=== PATIENT | female | born 1995 | race Asian ===

== ENCOUNTER → 2019-03-18 | Outpatient (CLI) | payer OTHER | END | disposition home or self-care (01) | LOC: PRENATAL 11:57 | DX: O26.849 Uterine size-date discrepancy, unspecified trimester (principal) ==

== ENCOUNTER → 2019-03-20 | Outpatient (CLI) | payer OTHER | END | disposition home or self-care (01) | LOC: PRENATAL 10:42 | DX: O36.5990 Maternal care for other known or suspected poor fetal growth, unspecified trimester, not applicable or unspecified (principal) ==

== ENCOUNTER → 2019-04-15 | Outpatient (CLI) | payer OTHER | END | disposition home or self-care (01) | LOC: PRENATAL 11:00 | DX: O35.3XX2 Maternal care for (suspected) damage to fetus from viral disease in mother, fetus 2 (principal) ==